=== PATIENT | male | born 1970 | race African-American/Black ===

== ENCOUNTER 2024-05-19 13:18 | Emergency (ER) | payer OTHER ==
[2024-05-19] MEDS: KETOROLAC 15 MG/ML 1 ML VIAL IM STA (14:01)
[2024-05-19] MEDS: ORPHENADRINE 30 MG/ML 2 ML VIAL IM STA (14:03)
--- NOTE | 2024-05-19 14:07 | XR ---
EXAMINATION TYPE: XR knee complete RT DATE OF EXAM: 05/19/2024 COMPARISON: NONE HISTORY: 53-year-old male pain and swelling TECHNIQUE: 3 views FINDINGS: Degenerative spurring throughout the 3 compartments of the knee. Mild to moderate medial co mpartment joint space narrowing. Extensor mechanism appears intact. There is a moderate to large supr apatellar joint effusion. No acute fracture, subluxation, dislocation is seen. Additional generalized soft tissue swelling noted. IMPRESSION: 1. Generalized soft tissue swelling as well as an underlying moderate to large joint effusion. Howeve r, no acute osseous abnormality is seen. MRI if concern for internal derangement. 2. Tricompartmental osteoarthrosis, moderate in the medial compartment. [facility], , 05/19/2024 2:05 PM
--- NOTE | 2024-05-19 14:31 | ED ---
Extremity Problem HPI - General Chief complaint: Extremity Problem,Nontraumatic Stated complaint: knee pain Time Seen by Provider: 05/19/24 13:29 Source: patient, RN notes reviewed Mode of arrival: ambulatory Limitations: no limitations - History of Present Illness Initial comments: This is a 53-year-old male who presents to the emergency department for right knee pain. States that he fell a couple of months ago and landed on his right knee. He has been dealing with pain and swelling since. He did have x-rays that were negative after the initial injury. He was sent from [place] for further evaluation and DVT rule out. States that he does have a known blood clot in his lung and is on blood thinners. They are giving him Tylenol at [place], which he states is not effective. MD Complaint: extremity pain - Related Data Allergies Allergy/AdvReac Type Severity Reaction Status Date / Time No Known Allergies Allergy Verified 05/19/24 13:22 Review of Systems ROS Statement: Those systems with pertinent positive or pertinent negative responses have been documented in the HPI. ROS Other: All systems not noted in ROS Statement are negative. Past Medical History Past Medical History: Heart Failure, Diabetes Mellitus, Hypertension, Pulmonary Embolus (PE) Smoking Status: Current some day smoker Past Drug Use History: Cocaine, Marijuana General Exam Limitations: no limitations General appearance: alert, in no apparent distress Head exam: Present: atraumatic, normocephalic, normal inspection Respiratory exam: Present: normal lung sounds bilaterally. Absent: respiratory distress, wheezes, rales, rhonchi, stridor Cardiovascular Exam: Present: regular rate, normal rhythm, normal heart sounds. Absent: systolic murmur, diastolic murmur, rubs, gallop, clicks Extremities exam: Present: other (Minor tenderness to palpation over the right knee. Full range of motion. No erythema or warmth. 2+ DP and PT pulses) Neurological exam: Present: alert, oriented X3, CN II-XII intact Psychiatric exam: Present: normal affect, normal mood Skin exam: Present: warm, dry, intact, normal color. Absent: rash Course Vital Signs 05/19/24 05/19/24 13:22 15:29 Temperature 97.7 F 97.9 F Pulse Rate 77 76 Respiratory 20 18 Rate Blood Pressure 123/73 130/68 O2 Sat by Pulse 93 L 97 Oximetry Medical Decision Making - Medical Decision Making This is a 53 year old male who presents to the emergency department for knee pain. Was pt. sent in by a medical professional or institution? @ -[place] Did you speak to anyone other than the patient for history? @ -No Did you review nursing and triage notes? @ -Yes, and I agree, it is accurate with regards to the patient's symptoms. Were old charts reviewed? @ -No Differential Diagnosis? @ -Differential Musculoskeletal Muscular strain, contusion, ligament sprain, fracture, arthritis, septic arthritis, bursitis, cellulitis, muscle spasm, nerve compression, DVT, arterial occlusion, herpes zoster, electrolyte abnormality, tumor.... This is not meant to be in all inclusive list EKG interpreted by me (3pts min.)? @ -Not obtained X-rays interpreted by me (1pt min.)? @ -X-ray of the right knee obtained. My interpretation identifies no acute fractures. CT interpreted by me (1pt min.)? @ -Not obtained U/S interpreted by me (1pt. min.)? @ -Duplex ultrasound of the right lower extremity obtained. My interpretation identifies no evidence of a DVT. What testing was considered but not performed? (CT, X-rays, U/S, labs)? Why? @ -None What meds were considered but not given? Why? @ -None Did you discuss the management of the patient with other professionals? @ -No Did you reconcile home meds? @ -No Was smoking cessation discussed for >3mins.? @ -No Was critical care preformed (if so, how long)? @ -No Were there social determinants of health that impacted care today? How? (Homelessness, low income, unemployed, alcoholism, drug addiction, transportation, low edu. Level, literacy, decrease access to med. care, long term, rehab)? @ -No Was there de-escalation of care discussed even if they declined? (Discuss DNR or withdrawal of care, Hospice)? @ -No What co-morbidities impacted this encounter? (DM, HTN, Smoking, COPD, CAD, Cancer, CVA, Hep., AIDS, mental health diagnosis, sleep apnea, morbid obesity)? @ -PE, morbid obesity Was patient admitted / discharged? @ -Discharged. X-ray of the right knee demonstrates a moderate to large joint effusion. Duplex ultrasound of the right lower extremity reveals no evidence of a DVT. Pain was treated in the emergency department. Advised he will need to follow-up with orthopedics regarding the joint effusion see if they can drain it. We discussed elevation and compression in the meantime. Patient discharged back to [place] in stable condition. Case discussed with ED attending Dr. Block. Return precautions reviewed in depth, the patient is instructed to return to the emergency department with any new, worsening, or concerning symptoms. Patient verbalized understanding. Undiagnosed new problem with uncertain prognosis? @ -None Drug Therapy requiring intensive monitoring for toxicity (Heparin, Nitro, Insulin, Cardizem)? @ -None Were any procedures done? @ -None Diagnosis/symptom? @ -Right knee pain, joint effusion Acute, or Chronic, or Acute on Chronic? @ -Acute Uncomplicated (without systemic symptoms) or Complicated (systemic symptoms)? @ -Uncomplicated Side effects of treatment? @ -None Exacerbation, Progression, or Severe Exacerbation] @ -Not applicable Poses a threat to life or bodily function? @ -No - Radiology Data Radiology results: report reviewed, image reviewed Disposition Clinical Impression: Effusion of knee joint right Disposition: HOME SELF-CARE Instructions (If sedation given, give patient instructions): Swollen Knee Joint (ED) Additional Instructions: Return to the emergency department with any new, worsening, or concerning symptoms. Elevate the leg when possible and use compression with an Atilio bandage or compression stockings. Follow-up with orthopedics as listed below. You may need the fluid from your knee drained. Is patient prescribed a controlled substance at d/c from ED?: No Referrals: None,Stated [Primary Care Provider] - 1-2 days Josh Diaz MD [Medical Doctor] - 1-2 days Time of Disposition: 14:58
--- NOTE | 2024-05-19 14:40 | US ---
EXAMINATION TYPE: US venous doppler duplex LE RT DATE OF EXAM: 05/19/2024 1:38 PM COMPARISON: NONE CLINICAL INDICATION: Male, 53 years old with history of Pain; Right leg pain and swelling, Pain, Swel ling TECHNIQUE: The lower extremity deep venous system is examined utilizing real time linear array sonog mar with graded compression, color doppler sonography, and spectral doppler. SIDE PERFORMED: Right FINDINGS: VESSELS IMAGED: Common Femoral Vein Deep Femoral Vein Greater Saphenous Vein * Femoral Vein Popliteal Vein Small Saphenous Vein * Proximal Calf Veins (* superficial vessels) Right Leg: Appears negative for DVT IMPRESSION: No evidence for DVT within the right lower extremity imaged from the groin to the upper calf. [facility], , 05/19/2024 2:38 PM
[2024-05-19] MEDS: DEXAMETHASONE SOD PHOSPHATE 10 MG/ML 1 ML VIAL IM STA (15:17)
[2024-05-19 15:30] VITALS: BP 130/68; PULSE 76; RESP 18; TEMP 97.9
== END 2024-05-19 15:30 | disposition home or self-care (01) ==
LOC: EC 13:18
CPT/HCPCS: 96372; 99284